=== PATIENT | female | born 1995 | race Caucasian/White ===

== ENCOUNTER 2021-11-28 14:57 | Emergency (ER) | payer SELFPAY ==
[~2021-11-28] VITALS: Ht 160 cm; Wt 81.8 kg
[2021-11-28 15:18] VITALS: BP 113/77; TEMP 98.5
[2021-11-28 17:07] VITALS: PULSE 75
== END 2021-11-28 17:07 | disposition home or self-care (01) ==
LOC: COL.ER 14:57
DX: S92.414A Nondisplaced fracture of proximal phalanx of right great toe, initial encounter for closed fracture (principal); Z28.311 Partially vaccinated for COVID-19; W20.8XXA Other cause of strike by thrown, projected or falling object, initial encounter